=== PATIENT | male | born 1980 | race Caucasian/White ===

== ENCOUNTER 2022-01-14 12:40 | Emergency (ER) | payer MEDICAID, SELFPAY ==
[2022-01-14 12:41] VITALS: BP 150/87; PULSE 90; RESP 18; TEMP 36.6; O2SAT 99; BMI 34.7
--- NOTE | 2022-01-14 13:06 | VDLE_ITS ---
Reason For Study: Pain RIGHT GSV is normal. CFV is compressible, spontaneous, phasic, competent and demonstrates normal augmentation. FV is compressible, spontaneous, phasic, competent and demonstrates normal augmentation. POP V is compressible, spontaneous, phasic, competent and demonstrates normal augmentation. T/P Trunk is compressible. PTV is compressible. RT PerV is compressible. Procedure This is a venous duplex using B-mode, color flow and spectral Doppler. Exam performed in department. A preliminary report was called and/or faxed to Juan. VL/Venous Duplex US, Unilateral Interpretation Summary Deep veins of the right lower extremity are patent and compressible segmentally . There is no evidence of right lower extremity deep vein thrombosis. Valvular competence gricelda ears intact within the proximal deep venous system on the right . The right great saphenous vein a ppears patent and compressible segmentally. Ordering Physician: Gonsalo Martinez Performed By: Gabriela Medina RVT
[2022-01-14] MEDS: oxyCODONE 5 MG Tablet PO (13:20)
--- NOTE | 2022-01-14 13:43 | EDS_ITS ---
HPI History of Present Illness Chief Complaint: Lower Extremity Injury Narrative Narrative: 41-year-old male presenting with acute onset right calf pain. He states this happened when he stood up from his chair. He felt a tearing sensation in the right calf. He has pain with ambulation. Denies any direct trauma. He is not noted any bruising or swelling. Patient seen by urgent care today who told him to come to the emergency room to rule out blood clot. Patient has no risk facto rs or history for blood clot. PFSH PFSH Home Medications naproxen 500 mg tablet (Naprosyn) 500 mg PO BID PRN pain #20 tabs 01/14/22 [Rx Last Taken Unknown] Allergy/AdvReac Type Severity Reaction Status Date / Time bee venom protein (honey bee) Allergy Anaphylaxis Verified 01/14/22 12:43 iodine Allergy Anaphylaxis Verified 01/14/22 12:43 SEAFOOD Allergy Anaphylaxis Uncoded 01/14/22 12:43 Social History Smoking Status: Current every day smoker tobacco type: cigarettes ROS ROS ED Constitutional Constitutional ED: Denies chills, fever(s) or sweats Eyes Eyes: Denies blurry vision or change in vision ENT ENT ED: Denies ear pain or sore throat Cardiovascular Cardiovascular: Denies chest pain, palpitations or racing heartbeat Respiratory/Chest Respiratory/Chest: Denies cough, dyspnea or sputum Gastrointestinal Gastrointestinal: Denies abdominal pain, constipation, diarrhea, nausea or vomiting Genitourinary Genitourinary ED: Denies dysuria, hematuria or urinary frequency Musculoskeletal Musculoskeletal: Reports other Details: Right calf pain ; Denies arthralgias or neck pain Integumentary Denies abscess, Abrasions or rash Neurologic Neurologic: Denies headache(s), paresthesias or weakness Psychiatric Psychiatric: Denies anxiety, depression, suicidal ideation or suicidal thoughts Endocrine Endocrinology: Denies polydipsia or polyuria EXAM Physical Exam Const Vital Signs: 01/14/22 12:41 Temperature 97.9 F Temperature Source Temporal Pulse Rate 90 Respiratory Rate 18 Blood Pressure 150/87 H Blood Pressure Mean 108 Pulse Ox 99 Oxygen Delivery Method Room Air Positive well nourished General Appearance ED: NAD HEENT normocephalic and atraumatic Chest Wall inspection of chest normal and palpation of chest normal Resp normal respiratory effort Cardio regular rate and regular rhythm GI non-tender and non-distended Extremity Extremity Narrative: Tenderness to palpation to the right medial mid calf posteriorly. Worse with dorsiflexion greater than plantar flexion. Achilles tendon is intact. Right foot neurovascular intact with brisk cap refill to all 5 toes. Compartments are soft. No bony tenderness. Neuro oriented x3 and CN's II-XII intact bilaterally Sensorium / Orientation: alert, oriented to person, oriented to place and oriented to time Motor Exam: strength 5/5 throughout Psych mental status grossly normal Skin no wounds MDM MDM MDM Narrative Medical decision making narrative: Patient presents with acute onset right calf pain while standing up. Is been present for couple of days. Is worse with ambulation. Seen in urgent care today who told him he might have a DVT. By history and on exam it seems to be more consistent with a muscle tear, likely gastrocnemius. I did obtain a DVT study as the patient was fearful at this point that he had a blood clot in his leg although he does not have any risk factors.Wells criteria would be negative 2. The DVT study was negative. Patient was initially given an oxycodone for pain in the ER however after discussion with him he is going to get a compression stocking. He is going to be on Naprosyn for pain at home. He is given crutches for ambulation. He is given instructions on icing and elevating. He was given work restrictions. Impression: 1. Calf muscle tear Lab Data Attestation: I reviewed the patient's lab results. Discharge Plan Triage Chief Complaint: Lower Extremity Injury ED Provider: Gonsalo Martinez Dx/Rx/DC Orders Instructions: Gastrocnemius Muscle Tear Prescriptions: New naproxen [Naprosyn] 500 mg tablet 500 mg PO BID PRN (Reason: pain) Qty: 20 0RF Stand Alone Forms: Work Status Form Primary Care Provider: Care Physician,No Primary Referrals: Peggy Major MD [STAFF PHYSICIAN] - 3-5 Days Care Physician,No Primary [Primary Care Provider] - Disposition Disposition: Home, Self Care
== END 2022-01-14 13:47 | disposition home or self-care (01) ==
PROVIDERS: Emergency Provider Student in an Organized Health Care Education/Training Program; Visit Provider Student in an Organized Health Care Education/Training Program
DX: S86.911A Strain of unspecified muscle(s) and tendon(s) at lower leg level, right leg, initial encounter (principal); X58.XXXA Exposure to other specified factors, initial encounter; F17.210 Nicotine dependence, cigarettes, uncomplicated
CPT/HCPCS: 93971; 99283

== ENCOUNTER 2022-05-31 12:19 | Emergency (ER) | payer MEDICAID, SELFPAY ==
[2022-05-31] VITALS (7 sets, daily range): BP systolic 136–137; BP diastolic 75–82; PULSE 85–103; RESP 15–20; TEMP 36.8; O2SAT 97–98; BMI 31.7
--- NOTE | 2022-05-31 12:35 | EKG12_ITS ---
Test Reason : MED CLEARENCE Blood Pressure : / mmHG Vent. Rate : 088 BPM Atrial Rate : 088 BPM P-R Int : 142 ms QRS Dur : 086 ms QT Int : 360 ms P-R-T Axes : 011 016 016 degrees QTc Int : 435 ms Normal sinus rhythm Normal ECG Confirmed by DONNIE ABBOTT, MIN ([id number]), senior editor JOSEPH CACERES ([id number]) on 06/02/2022 11:06:43 AM Referred By: Confirmed By:MIN FIELDS MD
--- NOTE | 2022-05-31 12:36 | EX.ED.VIS.PS ---
HPI HPI - Psych History of Present Illness Chief Complaint: Suicidal Narrative Narrative: 41-year-old male presents with suicidal ideation with plan to jump out in front of a car. He has had increasing depression over the last month. He states that he lost his son secondary to a heart condition last month. His was unable to handle the recent of their son and she overdosed on drugs. Patient has been having increasing insomnia, decreased appetite, and feelings of helplessness and hopelessness. He is more tearful on examination. He states that his boss at work call the police because of the patient's increasing suicidal ideation and depression. He denies any hallucination. No significant past medical history although he admits to smoking marijuana last night, and that he has a smoker. PFSH [facility] Medical History no medical history Home Medications NK 05/31/22 [History Last Taken Unknown] Allergy/AdvReac Type Severity Reaction Status Date / Time bee venom protein (honey bee) Allergy Anaphylaxis Verified 05/31/22 12:20 Fish Containing Products Allergy Anaphylaxis Verified 05/31/22 12:20 [seafood] iodine Allergy Anaphylaxis Verified 05/31/22 12:20 Social History Smoking Status: Current every day smoker tobacco type: cigarettes ROS ROS ED ROS Narrative Constitutional: No fever, no chills. HEENT: No sore throat. No neck pain. No loss of vision. No rhinorrhea. Cardiovascular: No chest pain. No palpitations. No pedal edema. Respiratory: No cough, no shortness of breath. Abdominal: No abdominal pain. No nausea. No vomiting. Genitourinary: No dysuria. No hematuria. Musculoskeletal: No myalgias. No arthralgias. Neurologic: No headaches. No dizziness. No lightheadedness. Skin: No rash. No change in color. Psychiatric: Positive depression. Mild anxiety. Positive suicidal ideation with plan to jump in front of traffic. Positive insomnia, decreased appetite. Feelings of helplessness and hopelessness. EXAM Physical Exam Narrative Exam Narrative: Afebrile. Vital signs noted. HEENT: Normocephalic. Atraumatic. PERRL, EOMI. Neck soft and supple. No point tenderness or step off. Cardiovascular: Regular rate and rhythm. No murmurs, rubs, or gallops appreciated. Respiratory: No tachypnea. Lungs clear to auscultation bilaterally. Gastrointestinal: Abdomen soft, nontender, with normoactive bowel sounds. No rebound or guarding. Neurological: Awake. Alert. Nonfocal, nonlateralizing. Skin: No rash. Normal color. No pallor. Musculoskeletal: No pedal edema. Full range of motion extremities. Psychiatric: Depressed affect. Tearful on examination. Positive suicidal ideation with plan, continuing. Const Vital Signs: 05/31/22 12:20 05/31/22 13:19 Temperature 98.2 F Temperature Source Temporal Pulse Rate 103 H Respiratory Rate 20 H 18 Blood Pressure 136/82 H Blood Pressure Mean 100 Pulse Ox 98 Oxygen Delivery Method Room Air Room Air MDM MDM MDM Narrative Medical decision making narrative: Medical clearance labs will be obtained. I do feel strongly that the patient will require psychiatric placement for his depression and suicidal ideation. CBC shows white count slightly elevated at 13.3 which I think is nonspecific, normal hemoglobin of 14.7, hematocrit 43.3. His electrolyte panel shows glucose elevated to 68 but he has a normal anion gap if not low at 4. Other electrolytes are unremarkable. Urine for drugs of abuse is positive for cannabinoids which she admits to smoking marijuana last evening. Alcohol level is pending, but regardless I do feel he is medically cleared currently for evaluation. In discussion with case management, it was felt that he needs to be placed for his depression and suicidal ideation. Patient will be signed out to the oncoming physician, Dr. Parvez Carson to make final disposition and ensure transfer. Patient is in stable condition. Lab Data Attestation: I reviewed the patient's lab results. Labs: Laboratory Results - last 24 hr 05/31/22 05/31/22 05/31/22 13:08 13:08 13:20 WBC 13.3 H RBC 4.84 Hgb 14.7 Hct 43.3 MCV 89.5 MCH 30.4 MCHC 33.9 RDW Std Deviation 42.1 RDW Coeff of Oxana 12.8 Plt Count 342 MPV 9.9 Immature Gran % (Auto) 0.500 Neut % (Auto) 77.4 H Lymph % (Auto) 15.2 L [place] % (Auto) 5.8 Eos % (Auto) 0.5 Baso % (Auto) 0.6 Absolute Neuts (auto) 10.3 H Absolute Lymphs (auto) 2.02 Nucleated RBC % 0 Sodium 138 Potassium 3.8 Chloride 104 Carbon Dioxide 30.0 Anion Gap 4 L BUN 8 Creatinine 0.76 Estim Creat Clear Calc 130.50 Est GFR (MDRD) Af Amer 146 Est GFR (MDRD) Non-Af 121 BUN/Creatinine Ratio 10.5 Glucose 268 H Calcium 9.3 Total Bilirubin 0.20 AST 12 L ALT 38 Alkaline Phosphatase 101 Total Protein 7.1 Albumin 3.7 Globulin 3.4 Albumin/Globulin Ratio 1.1 Urine Opiates Screen NEGATIVE Urine Methadone Screen NEGATIVE Ur Barbiturates Screen NEGATIVE Ur Phencyclidine Scrn NEGATIVE Ur Amphetamines Screen NEGATIVE MDMA (Ecstasy) Screen NEGATIVE U Benzodiazepines Scrn NEGATIVE Urine Cocaine Screen NEGATIVE U Cannabinoids Screen POSITIVE H Ur Drug Screen Comment Discharge Plan Triage Chief Complaint: Suicidal ED Provider: Ze Smith Dx/Rx/DC Orders Clinical Impression: Major depression, Suicidal ideation, Cannabis abuse Prescriptions: No Action NK Primary Care Provider: Care Physician,No Primary Referrals: Care Physician,No Primary [Primary Care Provider] - Disposition Disposition: Psychiatric Hospital or Unit
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
[2022-05-31 13:15] LABS: Absolute Lymphocyte Count 2.02 X10^3/uL (0.83-4.51); Absolute Neutrophil Count 10.3 X10^3/uL (2.0-7.7); Basophil# 0.08 X10^3/uL; Basophil% 0.6 % (0-1); Eosinophil# 0.07 X10^3/uL; Eosinophils% 0.5 % (0-5); Hematocrit 43.3 % (40-54); Hemoglobin 14.7 g/dL (13.0-16.5); Lymphocyte # 2.02 X10^3/ul (0.83-4.51); Lymphocyte % 15.2 % (19-41); Mean Corp Hgb Conc 33.9 g/dL (32-36); Mean Corpuscular Hgb 30.4 pg (27.0-32.0); Mean Corpuscular Volume 89.5 fL (80-94); Mean Platelet Vol. 9.9 fl (6.2-12.0); Monocyte# 0.77 X10^3/uL; Monocyte% 5.8 % (0-10); NRBC Flagged by Analyzer 0 % (0-5); Neutrophil # 10.28 X10^3/uL (2.7-7.7); Neutrophil % 77.4 % (47-70); Platelet Count 342 K/mm3 (150-450); RBC Distribution Width CV 12.8 % (11.6-14.6); RBC Distribution Width SD 42.1 fl (35.1-43.9); Red Blood Count 4.84 M/mm3 (4.6-6.2); White Blood Count 13.3 K/mm3 (4.4-11.0)
[2022-05-31 13:31] LABS: ALB/GLOB Ratio 1.1 RATIO (0.9-2.4); AST(SGOT) 12 U/L (15-37); Alanine Aminotransfer ALT/SGPT 38 U/L (16-61); Albumin, Serum 3.7 g/dL (3.2-5.0); Alkaline Phosphatase 101 U/L (45-117); Anion Gap 4 (5-15); BUN 8 mg/dL (7-18); BUN/Creat Ratio 10.5 RATIO (10-20); Calcium,Total 9.3 mg/dL (8.5-10.1); Chloride 104 mmol/L (98-107); Creatinine, Serum 0.76 mg/dL (0.70-1.30); EST Glomerular Filtration Rate 121 mL/min (>60); Est Glom Filt Rate - Afr Amer 146 mL/min (>60); Globulin 3.4 g/dL (2.2-4.2); Glucose 268 mg/dL (74-106); Potassium 3.8 mmol/L (3.5-5.1); Protein, Total 7.1 g/dL (6.4-8.2); Sodium Level 138 mmol/L (136-145)
[2022-05-31 13:44] LABS: Amphetamine Urine VISTA NEGATIVE (<1000 ng/mL); Barbiturate Urine VISTA NEGATIVE (< 200 ng/mL); Benzodiazepine Urine VISTA NEGATIVE (< 200 ng/mL); Cocaine Urine VISTA NEGATIVE (< 300 ng/mL); Ecstacy Urine VISTA NEGATIVE (< 500 ng/mL); Methadone Urine VISTA NEGATIVE (< 300 ng/mL); PCP Urine VISTA NEGATIVE (< 25 ng/mL); THC Urine VISTA POSITIVE (< 50 ng/mL); Vista UDS pH Range 6
[2022-05-31 14:09] LABS: Alcohol, Blood (Medical)-Serum < 3.0 mg/dL
--- NOTE | 2022-05-31 16:29 | CM.ED ---
LIZBETH called Meghan at [facility]. They have beds available. LIZBETH faxed referral packet to [facility]. LIZBETH received call from Octavio at [facility] inquiring about patient and his status. LIZBETH provided requested information. LIZBETH received call from Octavio at [facility]. He stated [facility] had accepted patient at [facility]. Report to be called to facility at [phone] or [phone]. Unit and bed assignment to be determined upon admission at the facility. LIZBETH updated patient that he is going to [facility]. Patient said that after he gets stable he plans to return to [place] with his family. Plan: [facility] Cheri LOPEZ
== END 2022-05-31 17:37 ==
PROVIDERS: Emergency Provider Emergency Medicine; Visit Provider Emergency Medicine
DX: F32.9 Major depressive disorder, single episode, unspecified (principal); R45.851 Suicidal ideations; F12.10 Cannabis abuse, uncomplicated; F17.210 Nicotine dependence, cigarettes, uncomplicated
CPT/HCPCS: 80053; 80307; 82077; 85025; 87811; 93005; 99284